=== PATIENT | male | born 1955 | race Caucasian/White ===

== ENCOUNTER 2019-12-22 21:59 | Emergency (ER) | payer MEDICARE, SELFPAY ==
--- NOTE | 2019-12-22 | ECG_ITS ---
Measurements Intervals [place] Rate: 54 P: 78 [place]: 160 QRS: 36 QRSD: 102 T: 109 QT: 422 QTc: 400 Interpretive Statements SINUS BRADYCARDIA WITH SINUS ARRHYTHMIA NONSPECIFIC ST & T-WAVE ABNORMALITY- LAT/HIGH LAT LEADS BASELINE WANDER- AVR, AVL, V2-V6 BORDERLINE ECG Electronically Signed On 12-23-2019 8:06:37 CDT by Murtaza Min D.O.
--- NOTE | ~2019-12-22 | CT_ITS ---
EXAMINATION: CTA chest PE protocol DATE: 12/22/2019 23:54 INDICATION: Shortness of breath. Covid-positive patient. TECHNIQUE: Computed tomography angiography (CTA) of the chest was performed with 100 mL Omnipaque-350 intravenous contrast timed to evaluate the pulmonary arteries. Coronal maximum intensity projection 3D-reconstructions were created by the technologist. Automated exposure control and iterative reconst ruction technique were employed. Exam dose: 846.53 mGy-cm total exam DLP. COMPARISON: 12/22/2019 portable AP chest FINDINGS: Status post sternotomy. There is diagnostic contrast enhancement of the pulmonary arteries and no evidence of pulmonary embol ism. There are scattered reticular and groundglass density infiltrates involving all lobes bilaterally. Fi ndings are consistent with pneumonia, including particularly viral pneumonia. Heart size is normal. Coronary artery calcifications. No pericardial or pleural effusion. Mild promin ence of the hilar nodes on the right, likely reactive. No hilar or mediastinal mass lesion or lymphad enopathy is noted otherwise. There is aneurysm of the ascending aorta, measuring up to 5.2 cm diameter. The aortic arch measures u p to 3.2 cm diameter. The descending thoracic aorta measures up to 3.4 cm diameter. Prominent interlamellar probable upper pole left renal cyst. Splenomegaly. Small dependent gallstones. Small sliding hiatal hernia. Abdominal aortic aneurysm beginning at the immediate suprarenal level. Diffuse idiopathic skeletal hyperostosis of the lower thoracic spine. No suspicious osteolytic or ost eoblastic lesions are noted. IMPRESSION: No evidence of pulmonary embolism Thoracic and abdominal aortic aneurysm Bilateral reticular and groundglass infiltrates, likely secondary to viral pneumonia Cholelithiasis Splenomegaly Reviewed, dictated and finalized at [facility]. Reviewed, dictated and finalized at [facility]. IMPRESSION: No evidence of pulmonary embolism Thoracic and abdominal aortic aneurysm Bilateral reticular and groundglass infiltrates, likely secondary to viral pneu monia Cholelithiasis Splenomegaly
--- NOTE | ~2019-12-22 | CT_ITS ---
EXAMINATION: CT brain wo con DATE: 12/22/2019 23:54 INDICATION: Dizziness. History of cerebrovascular accident. Covid-positive. TECHNIQUE: Computed tomography (CT) of the head was performed without intravenous contrast. The mA wa s adjusted according to patient size. Iterative reconstruction technique was employed. Exam dose: 68 1.00 mGy-cm total exam DLP. COMPARISON: 08/15/2011 CT brain FINDINGS: Bilateral vertebral artery and carotid siphon and supraclinoid internal carotid artery calc ifications are noted. There is nonspecific diminished attenuation of the subcortical and periventricular cerebral white mat ter, likely due to chronic small vessel ischemic changes. No intracranial mass lesion or hemorrhage or cerebrovascular accident is evident. No midline shift or mass effects. No subdural or epidural hematoma. There is mild cerebral and cerebellar volume loss. There is calcification or banding of the left orbital globe. There is severe opacification of the right maxillary sinus, prominent mucoperiosteal thickening of th e left maxillary sinus, extensive opacification of the ethmoid air cells, complete opacification of t he left frontal sinus. There is minimal soft tissue thickening in the posterior right sphenoid sinus. The right frontal sinus is not developed. IMPRESSION: Cerebral atherosclerosis and chronic small vessel ischemic changes of the cerebral white matter No acute intracranial finding Extensive paranasal sinus soft tissue thickening/opacification Reviewed, dictated and finalized at [facility]. Reviewed, dictated and finalized at [facility].
--- NOTE | ~2019-12-22 | XR_ITS ---
EXAMINATION: XR chest 1V portable INDICATION: Shortness of breath TECHNIQUE: Portable AP chest at 2220 hours COMPARISON: None available FINDINGS: There are patchy bilateral airspace opacities, left greater than right. No pleural effusion or pneumothorax is identified. The cardiac silhouette is upper limits of normal for technique. There are changes of prior cardiac surgery. IMPRESSION: 1. Patchy bilateral airspace opacities in a distribution which can be seen in the setting of COVID 19 pneumonia. Reviewed, dictated and finalized at [facility]. IMPRESSION: 1. Patchy bilateral airspace opacities in a distribution which can be seen in t he setting of COVID 19 pneumonia.
[2019-12-22 22:06] VITALS: BP 108/68; PULSE 60; RESP 13; TEMP 36.7; O2SAT 98
[2019-12-22 22:07] VITALS: PULSE 58
[2019-12-22 22:08] VITALS: O2SAT 98
[2019-12-22 22:21] LABS: Basophils Percent Auto 0.4 % (0.2-1.2); Hematocrit 41.8 % (42.0-52.0); Hemoglobin 13.9 g/dL (14.0-18.0); Immature Granulocyte Absolute 0.05 K/mm3 (0.00-0.031); Immature Granulocyte Percent A 0.9 % (0-0.5); Lymphocytes Absolute Auto 1.09 K/mm3 (0.9-3.2); Lymphocytes Percent Auto 19.4 % (18.3-44.2); Mean Corpuscular HGB Conc 33.3 g/dl (32-36); Mean Corpuscular Hemoglobin 30.2 pg (26-34); Mean Corpuscular Volume 90.7 fl (80-100); Mean Platelet Volume 9.9 fl (7.4-10.4); Monocytes Absolute Auto 0.5 K/mm3 (0.1-0.6); Monocytes Percent Auto 9.2 % (2.6-8.5); Neutrophils Percent Auto 70.1 % (45.5-73.1); Platelet Count Result 141 k/mm3 (150-375); Red Blood Count 4.61 M/mm3 (4.6-6.20); Red Cell Distribution Width 13.6 % (11.5-14.5); White Blood Count 5.6 K/mm3 (4.5-10.0)
[2019-12-22 22:30] LABS: Alanine Aminotransferase 41 U/L (4-50); Alkaline Phosphatase 103 U/L (38-126); Anion Gap 10 mmol/L (8-16); Aspartate Amino Transferase 56 U/L (17-59); Bilirubin,Total 0.8 mg/dL (0.2-1.3); Blood Urea Nitrogen 14 mg/dL (9-20); Calcium 8.9 mg/dL (8.4-10.2); Carbon Dioxide 25 mmol/L (22-30); Chloride 103 mmol/L (98-107); Estimated CRCL calculation 68 ml/min; Estimated Glomerular Filt Rate > 60; Glucose 112 mg/dL (75-110); Potassium 3.9 mmol/L (3.4-5.0); Sodium 138 mmol/L (137-145)
--- NOTE | 2019-12-22 22:30 | ED.GENADULT ---
HPI - General Adult General Chief complaint: Shortness of Breath/Dyspnea Stated complaint: COVID +, INCREASED FATIGUE, SOB Source: patient History of Present Illness HPI narrative: Patient is a 64 y/o male complaining of moderate SOB for several day. He state that his SOB is worse with minimal exertion. He also has some cough for over 1 week. He started to have dizziness today, which he describes as light-headedness. He denies feeling room spinning or passing out. He has generalized weakness, but denies any focal weakness or numbness. Of note, he states that he test positive for COVID 6 days ago. Related Data Home Medications Medication Instructions Recorded Confirmed Unable to Obtain Home Medications 12/22/19 12/22/19 Allergies Allergy/AdvReac Type Severity Reaction Status Date / Time No Known Allergies Allergy Verified 12/22/19 22:06 Review of Systems Constitutional: Constitutional: Denies chills, Reports fever(s), Reports headache(s) and Reports weakness Eyes: Eyes: Denies blurry vision ENT: Reports headache(s) and Denies neck pain Cardiovascular: Cardiovascular: Denies chest pain and Reports dyspnea Respiratory: Respiratory: Reports cough and Reports dyspnea Gastrointestinal: Gastrointestinal: Denies abdominal pain, Denies diarrhea, Denies nausea and Denies vomiting Genitourinary: Genitourinary: Denies hematuria and Denies dysuria Musculoskeletal: Musculoskeletal: Denies back pain and Denies neck pain Neurologic: Reports as per HPI, Reports dizziness, Reports headache(s), Denies focal weakness and Reports weakness PMFSH Family History Family History Other Family history of alcoholism Family history of cardiovascular disease Family history of osteoarthritis Family history of transient ischemic attacks Social History Social History Alcohol intake: never Gender identity (if verbalized by the patient): Male Exam Const: General: no acute distress and well developed Orientation/consciousness: oriented to person, oriented to place, oriented to time and patient oriented x3 HENMT: Head: normocephalic Ears: external ears normal General nose exam: Normal external nose present Eyes: General: appearance normal, both eyes and all related structures Conjunctivae: conjunctivae normal Neck: Neck: normal visual inspection and full ROM Chest: Chest palpation & inspection: normal inspection of the chest and no tenderness Resp: Effort & Inspection: normal respiratory effort Auscultation: clear to auscultation bilaterally Cardio: Rate: regular rate Rhythm: regular rhythm GI: GI Palp: No abdominal tenderness and Yes Soft to palpation Skin: General skin exam: normal color and turgor normal Neuro: General: oriented to person, oriented to place, oriented to time and patient oriented x3 Cognition (Neuro): normal cognition Extrem: General: normal to inspection, full ROM and no pedal edema Psych: Appearance: grossly normal Mental Status: mental status grossly normal Affect: normal affect Course Vital Signs Vital signs: Vital Signs Temperature 36.7 C 12/22/19 22:06 Pulse Rate 60 12/22/19 22:06 Respiratory Rate 13 12/22/19 22:06 Blood Pressure 108/68 12/22/19 22:06 Pulse Oximetry 98 12/22/19 22:06 Temperature 36.7 C 12/22/19 22:06 Pulse Rate 58 L 12/22/19 22:07 Respiratory Rate 13 12/22/19 22:06 Blood Pressure 108/68 12/22/19 22:06 Pulse Oximetry 98 12/22/19 22:08 Medical Decision Making Vital Signs Vital Signs: Vital Signs Temperature 36.7 C 12/22/19 22:06 Pulse Rate 60 12/22/19 22:06 Respiratory Rate 13 12/22/19 22:06 Blood Pressure 108/68 12/22/19 22:06 Pulse Oximetry 98 12/22/19 22:06 Temperature 36.7 C 12/22/19 22:06 Pulse Rate 58 L 12/22/19 22:07 Respiratory Rate 13 12/22/19 22:06 Blood Pressure 108/68 10
[2019-12-22 22:31] LABS: Lactic Acid Reflex 1.2 mmol/L (0.7-2.1)
[2019-12-22 22:47] LABS: NT Pro B Type Natriuretic Pept 481 PG/ML (5-100)
[2019-12-22 22:58] LABS: Troponin I 0.022 ng/mL (0.000-0.034)
[2019-12-22 23:07] LABS: D Dimer 8.78 ug/mL (<0.48)
[2019-12-22 23:15] VITALS: BP 107/61; PULSE 67; RESP 12; O2SAT 97
--- NOTE | 2019-12-22 23:15 | PC.NURSE ---
Assumed care of pt at this time. Report from ADRIANA Lafleur
--- NOTE | 2019-12-22 23:41 | PC.NURSE ---
Pt. to CT
[2019-12-22 23:58] VITALS: BP 120/62; PULSE 54; RESP 12; O2SAT 98
[2019-12-23] VITALS (9 sets, daily range): BP systolic 96–131; BP diastolic 61–73; PULSE 52–78; RESP 12–19; O2SAT 94–100
[2019-12-23] MEDS: SODIUM CHLORIDE 0.9% IV 1,000 ML 999 ML IV CONT ×2 (01:21→02:40)
[2019-12-23 01:43] LABS: Troponin I 0.021 ng/mL (0.000-0.034)
== END 2019-12-23 03:15 | disposition home or self-care (01) ==
PROVIDERS: Emergency Provider Emergency Medicine
DX: U07.1 COVID-19 (principal); J12.89 Other viral pneumonia; E86.0 Dehydration; R00.1 Bradycardia, unspecified; R94.31 Abnormal electrocardiogram [ECG] [EKG]; I67.2 Cerebral atherosclerosis; K80.20 Calculus of gallbladder without cholecystitis without obstruction; R16.1 Splenomegaly, not elsewhere classified; I71.4 Abdominal aortic aneurysm, without rupture; I71.2 Thoracic aortic aneurysm, without rupture
CPT/HCPCS: 36415; 70450; 71045; 71275; 80053; 83605; 83880; 84484; 85025; 85055; 85380; 87040; 93005; 96360; 96361; 99284; J7030; Q9967

== ENCOUNTER 2021-01-18 10:22 | Outpatient (CLI) | payer MEDICARE, SELFPAY ==
[2021-01-18 12:33] LABS: SARS-CoV-2 RNA PCR Negative (Negative)
== END 2021-01-18 10:23 | disposition home or self-care (01) ==
LOC: CHSLAB 10:26
PROVIDERS: PCP Family Medicine
DX: Z01.818 Encounter for other preprocedural examination (principal); Z20.822 Contact with and (suspected) exposure to COVID-19
CPT/HCPCS: C9803; U0003; U0005

== ENCOUNTER 2021-02-21 10:37 | Outpatient (CLI) | payer MEDICARE, SELFPAY ==
[2021-02-21 13:44] LABS: SARS-CoV-2 RNA PCR Negative (Negative)
== END 2021-02-21 10:38 | disposition home or self-care (01) ==
LOC: CHSLAB 10:40
PROVIDERS: Thoracic Surgery (Cardiothoracic Vascular Surgery); PCP Family Medicine
DX: Z01.818 Encounter for other preprocedural examination (principal); Z20.822 Contact with and (suspected) exposure to COVID-19
CPT/HCPCS: C9803; U0003; U0005

== ENCOUNTER 2022-10-08 15:00 | Emergency (ER) | payer MEDICARE, SELFPAY ==
--- NOTE | ~2022-10-08 | XR_ITS ---
XR hand RT min 3V DATE: 10/08/2022 15:20 INDICATION: Pain and swelling following injury 3 days ago TECHNIQUE: 3 views COMPARISON: 02/05/2006 right hand FINDINGS: There is mild polyarticular osteoarthritis including joint space narrowing between the scap hoid and capitate, joint space narrowing and spurring at the first carpometacarpal and second metacar pophalangeal and some interphalangeal joints. No fracture or dislocation, periosteal reaction or bone destruction is detected. IMPRESSION: Polyarticular osteoarthritis Reviewed, dictated and finalized at [facility].
[2022-10-08 15:02] VITALS: BP 134/71; PULSE 60; RESP 17; TEMP 37.6; O2SAT 100
--- NOTE | 2022-10-08 15:06 | ED.UPPEXIN ---
HPI - Extremity Injury (Upper) General Chief Complaint: Extremity Injury, Upper Stated Complaint: right hand pain Time Seen by Provider: 10/08/22 15:04 Source: patient Mode of arrival: ambulatory Limitations: no limitations History of Present Illness HPI narrative: 67 year old male presents to the Emergency Department complaining of right hand injury and pain. Patient states he was walking into room when power went out and he fell. Swelling began today. He indicates pain 1st metacarpal region primarily. Occurred 10-05-22. complaint: injury to: right Onset (ago): day(s) (3) Other Extremity Injury: Right: hand Other injuries: LLE (minor skin tear) Place: home Severity: moderate Relieving factors: rest Exacerbating factors: movement of extremity Context: fall Associated symptoms: denies other symptoms Related Data Home Medications Medication Instructions Recorded Confirmed atorvastatin 80 mg tablet 12/22/19 azithromycin 250 mg tablet 12/22/19 cilostazol 100 mg tablet mg 12/22/19 clopidogrel 75 mg tablet 12/22/19 lisinopril 5 mg tablet 12/22/19 metoprolol succinate 25 mg PO 12/22/19 tablet,extended release 24 hr tramadol 50 mg tablet mg 12/22/19 Allergies Allergy/AdvReac Type Severity Reaction Status Date / Time No Known Allergies Allergy Verified 10/08/22 15:02 Review of Systems Review of Systems: All systems reviewed & are unremarkable except as noted in HPI and below Constitutional: Constitutional: Reports as per HPI Eyes: Eyes: Reports as per HPI ENT: Reports system reviewed and no additional complaints, except as documented Cardiovascular: Cardiovascular: Reports as per HPI Respiratory: Respiratory: Reports as per HPI Gastrointestinal: Gastrointestinal: Reports as per HPI Genitourinary: Genitourinary: Reports no additional male genitourinary complaints Musculoskeletal: Musculoskeletal: Reports no additional musculoskeletal complaints Comments: pain and swelling right hand Integumentary/Breasts: Skin/Breast: Reports system reviewed and no additional complaints, except as docu Neurologic: Reports system reviewed and no additional complaints, except as documented Psychiatric: Psychiatric: Reports no additional psychiatric complaints Endocrine: Endocrine: Reports no additional endocrine complaints Hematologic/Lymphatic: Hematologic/Lymphatic: Reports no additional hematologic/lymphatic complaints Allergic/Immunologic: Allergic/Immunologic: Reports no additional allergic/immunologic complaints [facility] Past Medical History Medical History (Updated 10/08/22 @ 15:42 by Nasim Root MD) Anemia Anxiety Coronary artery disease Depression Hyperlipidemia Hypertension Peripheral vascular disease Sprain of right thumb Surgical History Surgical History H/O aortic valve replacement Status post aorto-coronary artery bypass graft Family History Family History Sibling Family history of cardiovascular disease Prostate carcinoma Hypertension Unknown Family history of osteoarthritis Other Family history of alcoholism Family history of transient ischemic attacks Social History Social History Social History: single level home with ramp entrance. Patient lives with . is in a manual wheelchair. Smoking status: Former smoker Tobacco type: cigarettes Second hand tobacco smoke exposure: No Alcohol intake: never Gender identity (if verbalized by the patient): Male Exam Const: General: no acute distress and alert Nutritional Appearance: well nourished Orientation/consciousness: patient oriented x3 Limitations: no limitations HENMT: Head: normal to inspection Ears: external ears normal Face/Nose/Sinus: Normal external nose present Face and sinus: normal facial exam Eyes:
[2022-10-08 15:48] VITALS: BP 134/71; PULSE 60; RESP 17; TEMP 37.6; O2SAT 100
== END 2022-10-08 15:49 | disposition home or self-care (01) ==
PROVIDERS: Emergency Provider Emergency Medicine; PCP Family Medicine
DX: S60.221A Contusion of right hand, initial encounter (principal); S63.601A Unspecified sprain of right thumb, initial encounter; I25.10 Atherosclerotic heart disease of native coronary artery without angina pectoris; E78.5 Hyperlipidemia, unspecified; I10 Essential (primary) hypertension; Z87.891 Personal history of nicotine dependence; W19.XXXA Unspecified fall, initial encounter; Y92.009 Unspecified place in unspecified non-institutional (private) residence as the place of occurrence of the external cause
CPT/HCPCS: 73130; 99283

== ENCOUNTER 2022-11-21 12:05 | Emergency (ER) | payer MEDICARE, SELFPAY ==
[2022-11-21 12:13] VITALS: BP 150/67; PULSE 61; RESP 18; TEMP 36.6; O2SAT 98
--- NOTE | 2022-11-21 13:23 | ED.URI ---
HPI - URI/Sore Throat General Chief Complaint: Upper Respiratory Infection Stated Complaint: sinus pressure Time Seen by Provider: 11/21/22 13:20 Source: patient, RN notes reviewed and old records reviewed Mode of arrival: ambulatory Limitations: no limitations History of Present Illness HPI Narrative: 67 year old male who presents to [facility] care with complaints of 5 day history of post nasal drainage and cough with mild shortness of breath. Patient reports that he has had expectoration of some brownish colored mucous.Patient reports that he has been taking Mucinex DM without improvement in his symptoms and he did do a home COVID test 2 days ago.Patient reports no known ill contacts. MD elicited complaint: cough, rhinorrhea, nasal congestion and sinus pain Pertinent past history: other (cardiac) Onset (ago): day(s) (5) Consistency: constant Able to tolerate fluids by mouth: Yes Treatments prior to arrival: other (Mucinex DM) Related Data Home Medications Medication Instructions Recorded Confirmed Xarelto 11/21/22 amiodarone 11/21/22 clopidogrel 75 mg tablet (Plavix) 75 mg PO DAILY 11/21/22 11/21/22 pantoprazole 11/21/22 Allergies Allergy/AdvReac Type Severity Reaction Status Date / Time No Known Allergies Allergy Verified 11/21/22 12:21 Review of Systems Review of Systems: CONSTITUTIONAL: Denies fever, chills, or sweats. EYES: Denies visual changes, redness, or discharge. ENT: Reports rhinorrhea, congestion,no sore throat, or otalgia. CARDIOVASCULAR: Denies chest pain, palpitations, or edema. RESPIRATORY: reports cough, mild dyspnea with exertion GASTROINTESTINAL: Denies abdominal pain, nausea, vomiting, or diarrhea. GENITOURINARY: Denies dysuria or hematuria. SKIN: Denies rash or itching. MUSCULOSKELETAL: Denies back pain, joint pain, or myalgia. NEUROLOGIC: Denies headache, numbness, or weakness. PSYCHIATRIC: Denies anxiety or depression. All systems reviewed & are unremarkable except as noted in HPI and below PMFSH Past Medical History Medical History Anemia Anxiety Coronary artery disease Depression Hyperlipidemia Hypertension Peripheral vascular disease Sprain of right thumb Surgical History Surgical History H/O aortic valve replacement Status post aorto-coronary artery bypass graft Family History Family History Sibling Family history of cardiovascular disease Prostate carcinoma Hypertension Unknown Family history of osteoarthritis Other Family history of alcoholism Family history of transient ischemic attacks Social History Social History Social History: single level home with ramp entrance. Patient lives with . is in a manual wheelchair. Smoking status: Former smoker Tobacco type: cigarettes Second hand tobacco smoke exposure: No Alcohol intake: never Gender identity (if verbalized by the patient): Male Comments At time of signature, agree with nursing past medical, surgical, social and family history. There is no relevant family history pertinent to the presenting complaint Exam Narrative: GENERAL: Well-appearing, well-nourished, and in no acute distress. HEAD: Normocephalic, atraumatic. EYES: PERRLA and EOMI. ENT: Nares clear, yellow tinged rhinorrhea no epistaxis. Mucous membranes moist.TM's normal, throat pink with no lesions, post nasal drainage. NECK: Supple. no lymphadenopathy CHEST: Clear to auscultation. No respiratory distress.no tachypnea SAO2 98% on room air, cough noted HEART: Regular rate and rhythm. No murmur heard. Normal peripheral pulses. ABDOMEN: Soft, nontender, nondistended, normal active bowel sounds. EXTREMITIES: Normal range of motion. No edema. SKIN: Warm, dry, no rash. NEURO: No focal deficits. Alert
== END 2022-11-21 13:42 | disposition home or self-care (01) ==
PROVIDERS: Emergency Provider Registered Nurse; PCP Family Medicine
DX: J06.9 Acute upper respiratory infection, unspecified (principal); R05.9 Cough, unspecified; Z20.822 Contact with and (suspected) exposure to COVID-19; Z87.891 Personal history of nicotine dependence; I25.10 Atherosclerotic heart disease of native coronary artery without angina pectoris; E78.5 Hyperlipidemia, unspecified; I10 Essential (primary) hypertension; I73.9 Peripheral vascular disease, unspecified; Z79.01 Long term (current) use of anticoagulants; Z95.2 Presence of prosthetic heart valve; Z95.1 Presence of aortocoronary bypass graft
CPT/HCPCS: 87426; 87804; 99213; C9803; G0463

== ENCOUNTER 2022-12-01 10:21 | Emergency (ER) | payer MEDICARE, SELFPAY ==
--- NOTE | ~2022-12-01 | XR_ITS ---
XR chest 2V 12/01/2022 10:56 Indication: Shortness of breath and chest tightness Procedure: 2 view chest Comparison: 12/22/2019 Findings: Borderline heart size. Pacemaker leads are stable. There are median sternotomy wires. No fo sol air space disease, pulmonary edema, pleural effusion or suspected pneumothorax. Impression: 1: No acute cardiopulmonary disease. Reviewed, dictated and finalized at [facility]. Impression: 1: No acute cardiopulmonary disease.
[2022-12-01 10:26] VITALS: BP 120/69; PULSE 64; RESP 20; TEMP 36.6; O2SAT 98
[2022-12-01 10:46] VITALS: BP 120/69; PULSE 64; RESP 20; TEMP 36.6; O2SAT 98
--- NOTE | 2022-12-01 10:47 | ECG_ITS ---
Measurements Intervals [place] Rate: 60 P: 127 [place]: 240 QRS: 42 QRSD: 113 T: 93 QT: 444 QTc: 444 Interpretive Statements ELECTRONIC ATRIAL PACEMAKER INCOMPLETE LEFT BUNDLE BRANCH BLOCK BORDERLINE ST-T WAVE ABNORMALITY- ANTEROLAT/HIGH LAT LEADS BASELINE ARTIFACT- V4-V6 ABNORMAL ECG COMPARED TO ECG 12/22/2019 22:01:05 ATRIAL PACEMAKER NOW PRESENT INCOMPLETE LEFT BUNDLE BRANCH BLOCK NOW PRESENT Electronically Signed On 12-01-2022 11:02:45 CDT by Murtaza Min D.O.
--- NOTE | 2022-12-01 11:05 | ED.SOB ---
HPI - SOB/Dyspnea General Chief Complaint: Shortness of Breath/Dyspnea Stated Complaint: upper respiratory Time Seen by Provider: 12/01/22 10:50 Source: patient Mode of arrival: ambulatory Limitations: no limitations History of Present Illness HPI Narrative: Philippe is a 67-year-old male patient presenting to the clinic today with complaints of shortness of breath times 2 weeks. He was seen in the clinic 10 days ago and given prescription for amoxicillin. He was diagnosed with coughing congestion with URI at that time. He had COVID and influenza testing performed at that time and they were negative. No chest x-ray was performed at the time he was seen. He reports that he has been taking the amoxicillin in his symptoms are increasingly getting worse. He appears pale and is gradually becoming more short of breath. History of CABG,CHF, leg stents, hypertension, high cholesterol, coronary artery disease, perphreal vascular disease, and a new atrial pacemaker. Takes Xarelto as prescribed and has not missed any doses. Reports that his shortness of breath is about 9/10 currently. Former smoker-1.5 packs per day x 20-25 years. Related Data Home Medications Medication Instructions Recorded Confirmed amiodarone 200 mg tablet 200 mg PO BID 12/01/22 12/01/22 atorvastatin 80 mg tablet 80 mg PO DAILY 12/01/22 12/01/22 clopidogrel 75 mg tablet 75 mg PO DAILY 12/01/22 12/01/22 flaxseed oil 1,000 mg capsule 1,000 mg PO DAILY 12/01/22 12/01/22 multivit with minerals-iron 18 1 tablet PO DAILY 12/01/22 12/01/22 mg-folic ac 400 mcg-vit K 25 mcg tablet (Adults Multivitamin) omega 7-vay-xpx-fish oil 60 mg-90 1 cap PO DAILY 12/01/22 12/01/22 mg-500 mg capsule (Fish Oil) pantoprazole 20 mg tablet,delayed 20 mg PO DAILY 12/01/22 12/01/22 release rivaroxaban 20 mg tablet (Xarelto) 20 mg PO DAILY 12/01/22 12/01/22 tramadol 50 mg tablet See Rx Instructions .Route 12/01/22 12/01/22 .COMPLEX PRN as prescribed Allergies Allergy/AdvReac Type Severity Reaction Status Date / Time No Known Allergies Allergy Verified 11/21/22 12:21 Review of Systems Review of Systems: Pertinent positives per HPI. Patient denies any fever, chills, rash, headache, visual changes, dizziness, runny nose, sore throat, chest pain, palpitations, nausea, vomiting, diarrhea, constipation, abdominal pain, or any urinary issues. [facility], [facility] Past Medical History Medical History Anemia Anxiety Coronary artery disease Depression Hyperlipidemia Hypertension Peripheral vascular disease Sprain of right thumb Surgical History Surgical History H/O aortic valve replacement Status post aorto-coronary artery bypass graft Family History Family History Sibling Family history of cardiovascular disease Prostate carcinoma Hypertension Unknown Family history of osteoarthritis Other Family history of alcoholism Family history of transient ischemic attacks Social History Social History Social History: single level home with ramp entrance. Patient lives with . is in a manual wheelchair. Smoking status: Former smoker Tobacco type: cigarettes Second hand tobacco smoke exposure: No Alcohol intake: never Gender identity (if verbalized by the patient): Male Comments At the time of my signature, I reviewed and agree with the nursing past medical, surgical, social, and family history. There is no relevant family history pertinent to the patient complaint. Exam Narrative: General: Well-developed, well nourished, in no apparent distress, pale appearing Head: Normocephalic, atraumatic Eyes: Pupils equally round and reactive to light bilaterally, EOM intact, sclera and conjunctive clear, no discharge, lids normal E
== END 2022-12-01 11:15 | disposition short-term general hospital (02) ==
PROVIDERS: Emergency Provider Nurse Practitioner Family; PCP Family Medicine
DX: R06.02 Shortness of breath (principal); I25.10 Atherosclerotic heart disease of native coronary artery without angina pectoris; E78.5 Hyperlipidemia, unspecified; I10 Essential (primary) hypertension; Z79.899 Other long term (current) drug therapy; Z79.01 Long term (current) use of anticoagulants; Z87.891 Personal history of nicotine dependence
CPT/HCPCS: 71046; 93005; 99213; G0463